=== PATIENT | female | born 1955 | race Caucasian/White ===

== ENCOUNTER → 2017-08-29 18:47 | Outpatient (CLI) | payer MEDICAID ==
[~2017-08-29 18:47] MED LIST: BAYER CHEWABLE81 MG PO; GABAPENTIN100 MG PO; GLUCOPHAGE1000 MG PO; GLUCOTROL 5 MG T5 MG PO; HYDROCHLOROTHIA25 MG PO; LISINOPRIL10 MG PO; MOBIC7.5 MG PO; PEPCID20 MG PO; PLAVIX75 MG PO
[2017-10-01 22:29] VITALS: BMI 36.1
== END | disposition home or self-care (01) ==
LOC: D.MAMMO 14:00
DX: Z12.31 Encounter for screening mammogram for malignant neoplasm of breast (principal)

== ENCOUNTER → 2017-09-25 16:43 | Outpatient (CLI) | payer MEDICAID ==
[~2017-09-25 16:43] MED LIST changes: +CLEOCIN HCL300 MG PO
[2017-10-12 19:09] VITALS: BMI 36.1
== END | disposition home or self-care (01) ==
LOC: D.MAMMO 09:30
DX: R92.8 Other abnormal and inconclusive findings on diagnostic imaging of breast (principal)

== ENCOUNTER 2017-09-26 07:42 | Outpatient (CLI) | payer MEDICAID ==
[~2017-09-26] VITALS: Ht 162.6 cm; Wt 97.7 kg
--- NOTE | ~2017-09-26 | OP ---
PATIENT NAME: JACKELYN SANDOVAL MEDICAL RECORD: [id number] :53 LOCATION:D.CAT ADMISSION DATE: SURGEON: YAMILE JIANG MD DATE OF OPERATION: 09/26/2017 PROCEDURES: 1. PTCA stent LAD. 2. Left heart catheterization. 3. Selective coronary angiography. 4. Left ventriculogram. INDICATION: Angina and coronary artery disease. PROCEDURE IN DETAIL: After informed consent was obtained and after detailed discussion of risks and benefits as well as alternative therapies, the patient elected to proceed with angiogram and angioplasty. The right radial area was prepped and draped in normal sterile fashion. Right radial artery was cannulated via modified Seldinger technique with placement of 6-Azerbaijani sheath. All catheters exchanged through this sheath. FINDINGS: The left ventriculogram was performed in standard 30-degree CAMPBELL view, reveals good cardiac wall motion, ejection fraction 55% to 60%. SELECTIVE CORONARY ANGIOGRAPHY: 1. Left main showed no significant angiographic disease. 2. Left anterior descending has 90% stenosis proximally. 3. The left circumflex has moderate irregularities, but no flow-limiting stenosis. 4. Right coronary has 80% stenosis in the mid vessel. PTCA STENT OF THE LAD: The stent used was a 3.0 x 18 mm Presto. Result was 0% residual stenosis. OVERALL IMPRESSION: Successful PTCA stent of the LAD going from 90% initial stenosis to 0% residual. PLAN: Plan for PTCA stent of the RCA in the near future. TRANSINT:[id number] Voice Confirmation ID: [id number] DOCUMENT ID: [id number] YAMILE JIANG MD at 1403 CC: [id number] DICTATION DATE: 09/26/17 1110 REINFORCING BAR SETTER: 09/26/17 1224 DEP CLI 09/26/17 [place] [id number]
--- NOTE | ~2017-09-26 | HEMODYNAMI ---
PATIENT:JACKELYN SANDOVAL MEDICAL RECORD: [id number] : 53 LOCATION:[facility] ADMISSION DATE: 09/26/17 Generatedon:09/26/201711:13 Patient name: JACKELYN SANDOVAL Patient #: [id number] SSN: : 1955 Date of study: 09/26/2017 Page: Of Hemodynamic Procedure Report Patient Data Patient Demographics Procedure consent was obtained First Name: JACKELYN Gender: Female Last Name: JAIME : 1955 [facility] Initial: K Age: 61 year(s) Patient #: [id number] Race: Unknown Additional ID: [id number] Contact details Address: [address] [place] [address] [address] State: [place] City: [facility] Zip code: [address] Past Medical History Allergies Allergen Reaction Date Comments Reported Other allergy 09/26/2017 ATENOLOL Admission Admission Data Admission Date: 09/26/2017 Admission Time: 7:42 Height (in.): 5.4 BSA: 0.34 (m2) Height (cm.): 13.72 BMI: 5232.03 (kg/m2) Weight (lbs.): 217 Weight (kg.): 98.43 Procedure Procedure Types Cath Procedure Diagnostic Procedure [facility] w/Coronaries PCI Procedure Coronary Stent Coronary Stent Initial Procedure Description Procedure Date Procedure Date: 09/26/2017 Procedure Start Time: 10:58 Procedure End Time: 11:09 Procedure Staff Name Function Abrahan Mondragon MD Performing Physician Claude Yang RT Monitor Katherine Peoples RT Scrub Lane Black RN Nurse Procedure Data Cath Procedure Fluoroscopy Diagnostic fluoroscopy Total fluoroscopy Time: 2.8 time: 2.8 min min Diagnostic fluoroscopy Total fluoroscopy dose: 507 dose: 507 mGy mGy Contrast Material Contrast Material Type Amount (ml) Isovue 300 70 Entry Location Entry Primary Successful Side Size Upsize Upsize Entry Closure Romero ccessful Closure Location (Fr) 1 (Fr) 2 (Fr) Remarks Device Remarks Radial Right 6 Fr Mechanical artery Short Compression Estimated blood loss: 10 ml Diagnostic catheters Device Type Used For End Catheter Placement DIAGNOSTIC [place] 110cm 5 Procedure Fr catheter ([id number]) Procedure Complications No complications Procedure Medications Medication Administration Route Dosage Oxygen etCO2 Nasal cannula 2 l/min Heparin Flush Bag added to field 2 bags (1000units/500ml NS) 0.9% NaCl I.V. 100 ml/hr Radial Cocktail added to field 1 syringe (Verapomil 2mg/Nitro 400mcg/Heparin 1500units) Fentanyl I.V. 50 mcg Versed I.V. 1 mg Radial Cocktail I.A. 1 syringe (Verapomil 2mg/Nitro 400mcg/Heparin 1500units) Fentanyl I.V. 50 mcg Versed I.V. 1 mg Heparin Bolus I.V. 4000 units Integrilin (Bolus I.V. 9 ml 2mg/ml) Integrilin (Bolus wasted 1 ml 2mg/ml) Plavix P.O. 600 mg Hemodynamics Rest BSA: 0.34 (m2) O2 Consumption: Estimated: 31.17 (ml/min) O2 Consumption indexed: Estimated:91.68 (ml/min/m) Heart Rate: 64 (bpm) Snapshots Pre Cath Intra NCS Post Cath Vital Signs Time Heart Resp SPO2 etCO2 NIBP (mmHg) Rhythm Pain Sedation Rate (ipm) (%) (mmHg) Status Level (bpm) 10:45:02 62 16 100 29.1 165/95(132) NSR 0 (11) 10(A) , No pain 10:49:39 64 16 100 29.1 159/97(132) NSR 0 (11) 10(A) , No pain 10:54:13 68 17 100 29.8 157/101(128) NSR 0 (11) 10(A) , No pain 10:58:48 85 16 96 26.9 164/111(146) NSR 0 (11) 9(A) , No pain 11:03:25 93 16 88 32.1 167/104(133) NSR 0 (11) 9(A) , No pain 11:08:03 89 16 92 21.6 153/89(125) NSR 0 (11) 9(A) , No pain 11:08:52 87 16 94 24.6 155/97(115) NSR 0 (11) 10(A) , No pain Medications Time Medication Route Dose Verified Delivered Reason Not es Effectiveness by by 10:55:47 Oxygen etCO2 2 l/min Abrahan Sherman Per physician Nasal Giancarlo Black RN cannula 10:55:58 Heparin Flush added 2 bags Abrahan Sherman used for Bag to Giancarlo Black RN procedure (1000units/500ml field NS) 10:56:08 0.9% NaCl I.V. 100 Abrahan Sherman Per physician ml/hr Giancarlo Black RN 10:56:16 Radial Cocktail added 1 Abrahan Sherman used for (Verapomil to syringe Giancarlo Black RN procedure 2mg/Nitro field 400mcg/Heparin 1500units) 10:56:22 Fentanyl I.V. 50 mcg Abrahan Sherman for sedation Giancarlo Black RN 10:56:29 Versed I.V. 1 mg Abrahan Sherman for sedation Giancarlo Black RN 10:59:13 Radial Cocktail I.A. 1 Abrahan Abrahan for (Verapomil syringe Giancarlo Mondragon MD vasodilation 2mg/Nitro 400mcg/Heparin 1500units) 10:59:20 Fentanyl I.V. 50 mcg Abrahan Sherman for sedation Giancarlo Black RN 10:59:24 Versed I.V. 1 mg Abrahan Sherman for sedation Giancarlo Black RN 11:04:18 Heparin Bolus I.V. 4000 Abrahan Sherman for units Giancarlo Black RN anticoagulation 11:04:31 Integrilin I.V. 9 ml Abrahan Sherman for (Bolus 2mg/ml) Giancarlo Black RN antiplatelet therapy 11:04:37 Integrilin wasted 1 ml Abrahan Sherman for (Bolus 2mg/ml) Giancarlo Black RN antiplatelet therapy 11:08:13 Plavix P.O. 600 mg Abrahan Sherman for Giancarlo Black RN antiplatelet therapy Procedure Log Time Note 10:26:28 Claude THOMAS(R) sent for patient. Start room use. 10:26:29 Time tracking: Regular hours (M-F 7:00 - 5:00) 10:26:32 Plan of Care:Hemodynamics will remain stable., Cardiac rhythm will remain stable., Comfort level will be maintained., Respiratory function will remain adequate., Patient/ family verbilizes understanding of procedure., Procedure tolerated without complication., Recovers from procedure without complications.. 10:26:33 Signed procedure consent form obtained from patient. 10:26:44 H&P Date Dictated: 08/28/2017 Within 30 days and on chart., H&P Addendum completed by physician on day of procedure. (MUST COMPLETE FOR ALL OUTPATIENTS). 10:26:57 Patient allergic to Other allergyATENOLOL 10:27:09 Patient Height : 5.4 inches 10:27:13 Patient Weight : 217 lbs 10:28:22 Patient received from Pre/Post Procedure Room to CCL 1 Alert and oriented. Tansferred to table in Supine position. 10:28:24 Warm blankets applied, and neil hugger turned on for patient comfort. 10:28:25 Correct patient and procedure confirmed by team. 10:28:26 ECG and BP/O2 sat monitors applied to patient. 10:44:14 Vital chart was started 10:44:15 Baseline sample Acquired. 10:44:19 Rhythm: sinus rhythm 10:44:20 Full Disclosure recording started 10:44:21 Pre-procedure instructions explained to patient. 10:44:21 Pre-op teaching completed and patient verbalized understanding. 10:44:22 Family in waiting room. 10:44:24 Patient NPO since Midnight. 10:44:26 Is the patient allergic to Iodine/contrast media? No. 10:44:27 Is patient on blood thinner?No 10:44:29 Patient diabetic? Yes. 10:44:31 If diabetic: On Metformin? Yes 10:44:35 If on Metformin: Last Dose? 09/24/2017 10:44:43 Previous problem with sedation/anesthesia? No ? 10:44:44 Snore? Yes 10:44:45 Sleep apnea? No 10:44:45 Deviated septum? No 10:44:46 Opens mouth fully? Yes 10:44:47 Sticks out tongue? Yes 10:44:48 Airway obstruction? No ? 10:44:50 Dentures? No ? 10:44:52 Modified Cody's test Ulnar < 7 seconds 10:44:54 Patient pain scale 0/10 ?. 10:44:58 IV patent on arrival in left antecubital with 0.9% NaCl at O. 10:45:00 Lab results completed and on chart. 10:45:02 Right Radial & Right Groin area was prepped with chlora-prep and draped in sterile fashion 10:45:03 Alarms reviewed by R. N. 10:45:04 Sharps counted by scrub and verified by R.N. 10:45:07 Use device set Radial Dx or PCI 10:45:07 ACIST Syringe (55270) opened to sterile field. 10:45:08 Medline Cath Pack ([id number]) opened to sterile field. 10:45:08 Bag Decanter (2002S) opened to sterile field. 10:45:10 MBrace Wrist Support ([id number]) opened to sterile field. 10:45:10 Tegaderm 4 x 4 (1626W) opened to sterile field. 10:45:11 ACIST Manifold (77280) opened to sterile field. 10:45:12 ACIST Hand Control (03016) opened to sterile field. 10:45:13 SHEATH 6Fr Prelude Radial ([id number]) opened to sterile field. 10:45:15 DIAGNOSTIC WIRE .035 260cm J wire (933923) opened to sterile field. 10:51:39 Physician arrived 10:51:39 --------ALL STOP TIME OUT------ 10:51:40 Final Timeout: patient, procedure, and site verified with staff and physician. All members of the team are in agreement. 10:51:42 Right Radial & Right Groin site verified by team. 10:51:44 Physical assessment completed. ASA score P 2 - A patient with mild systemic disease as per Abrahan Mondragon MD. 10:51:47 Sedation plan: IV Moderate Sedation Medication:Versed, Fentanyl 10:55:47 Oxygen 2 l/min etCO2 Nasal cannula was administered by Lane Black RN; Per physician; 10:55:58 Heparin Flush Bag (1000units/500ml NS) 2 bags added to field was administered by Lane Black RN; used for procedure; 10:56:08 0.9% NaCl 100 ml/hr I.V. was administered by Lane Black RN; Per physician; 10:56:16 Radial Cocktail (Verapomil 2mg/Nitro 400mcg/Heparin 1500units) 1 syringe added to field was administered by Lane Black RN; used for procedure; 10:56:22 Fentanyl 50 mcg I.V. was administered by Lane Black RN; for sedation; 10:56:29 Versed 1 mg I.V. was administered by Lane Black RN; for sedation; 10:58:02 Procedure started. 10:58:08 Local anesthetic to right radial artery with Lidocaine 2% by Abrahan Mondragon MD.INITIAL ACCESS ONLY 10:58:34 A 6 Fr Short sheath was inserted into the Right Radial artery 10:59:13 Radial Cocktail (Verapomil 2mg/Nitro 400mcg/Heparin 1500units) 1 syringe I.A. was administered by Abrahan Mondragon MD; for vasodilation; 10:59:20 Fentanyl 50 mcg I.V. was administered by Lane Black RN; for sedation; 10:59:24 Versed 1 mg I.V. was administered by Lane Black RN; for sedation; 10:59:26 Zero performed for pressure channel P1 10:59:49 A DIAGNOSTIC [place] 110cm 5 Fr catheter (104770) was advanced over the wire and used for Procedure. 11:00:21 LCA angiography performed. 11:00:23 Injector settings: Ml/sec: 5, Volume: 15, 11:00:28 EF : 60 % 11:00:30 LCA angiography performed. 11:01:12 INFLATOR Merit BasixCompak (LB9177) opened to sterile field. 11:01:13 CHOICE PT Extra Support 182cm wire ([id number]) opened to sterile field. 11:01:18 GUIDE 6FR XBLAD 3.5 catheter ([id number]) opened to sterile field. 11:01:22 RCA angiography performed. 11:02:26 Catheter removed. 11:03:31 6 Fr xblad 3.5 guide catheter was inserted over the wire 11:03:34 choice pt wire advanced. 11:03:45 Wire advanced across lesion. 11:04:18 Heparin Bolus 4000 units I.V. was administered by Lane Black RN; for anticoagulation; 11:04:31 Integrilin (Bolus 2mg/ml) 9 ml I.V. was administered by Lane Black RN; for antiplatelet therapy; 11:04:37 Integrilin (Bolus 2mg/ml) 1 ml wasted was administered by Lane Black RN; for antiplatelet therapy; 11:05:46 Place stent Inflation Number: 1 A SURYA RX 3.0 x 18 stent ([id number]) was prepped and advanced across the Prox LAD. The stent was deployed at 15 DEREK for 0:10 (min:sec). 11:05:48 Stent catheter was removed intact over wire. 11:05:49 Wire removed. 11:05:50 Guide catheter removed. 11:06:17 TR BAND Standard ([id number]) opened to sterile field. 11:06:29 Sheath removed intact; hemostasis achieved with Mechanical Compression to the Right Radial artery. 11:06:30 Procedure ended.(Physican Out) 11:08:07 Fluoroscopy time 02.80 minutes. 11:08:10 Fluoroscopy dose: 507 mGy 11:08: Flurop Dose total: 507 11:08:13 Plavix 600 mg P.O. was administered by Lane Black RN; for antiplatelet therapy; 11:08:13 Contrast amount:Isovue 300 70ml. 11:08:14 Sharps counted by scrub and verified by R.N. 11:08:16 TR band inflated with 12cc of air. 11:08:17 Insertion/operative site no bleeding no hematoma. 11:08:22 Post right radial artery:stable, soft, clean and dry 11:08:23 Post Procedure Pulses reassessed and unchanged 11:08:25 Post-procedure physical assessment completed. ASA score P 2 - A patient with mild systemic disease as per Abrahan Mondragon MD. 11:08:28 Post procedure rhythm: unchanged. 11:08:29 Estimated blood loss: 10 ml 11:08:31 Post procedure instruction explained to patient.Patient verbalizes understanding. 11:08:31 Patient needs reinforcement of post procedure teaching. 11:08:38 Procedure type changed to Cath procedure, Diagnostic procedure, LHC, LHC w/Coronaries, PCI procedure, Coronary Stent, Coronary Stent Initial 11:09:06 Procedure and supply charges have been captured, reviewed, submitted and are correct. 11:09:08 Procedure Complication : No complications 11:09:09 Vital chart was stopped 11:09:14 See physician's report for complete and final results. 11:09:15 Report given to Pre/Post Procedure Room. 11:09:17 Patient transfered to Pre/Post Procedure Room with Stretcher. 11::19 Procedure ended. 11:09:19 Full Disclosure recording stopped 11:09:22 End room use (Document Last) Intervention Summary Intervention Notes Time ActionType Lesion and Equipment Used Action# Pressure Duration Attributes 11:05:46 Place stent Prox LAD SURYA RX 3.0 x 1 15 00:10 18 stent ([id number]) Device Usage Item Name Manufacture Quantity Catalog Number Hospital Part Current Minimal Lot# / Charge Number Stock Stock Serial# Code ACIST Syringe Acist 1 76725 [id number] 424331 [id number] 20 (75255) Medical Systems Inc Medline Cath Cardinal 1 [id number] 602057 80849 800183 5 Pack Health ([id number]) Bag Decanter Microtek 1 2001S 439238 31154 077277 5 (2001S) Medical Inc. MBrace Wrist Advanced 1 140-0250-00 379594 62444 874853 5 Support Vascular ([id number]) Dynamics Tegaderm 4 x 4 3M 1 1626W 141431 456450 474494 5 (1626W) ACIST Manifold Acist 1 13918 580362 164984 796548 5 (49184) Medical Systems Inc ACIST Hand Acist 1 73708 919257 387453 461928 5 Control (69008) Medical Systems Inc SHEATH 6Fr Merit 1 [id number] 855972 273908 776991 5 Prelude Radial Medical ([id number]) DIAGNOSTIC WIRE St Davidson 1 191924 216482 691669 410966 30 .035 260cm J wire (704261) DIAGNOSTIC Terumo 1 40-8153 172736 886585 716160 5 [place] 110cm 5 Fr catheter (000322) INFLATOR Merit Merit 1 RA9046 007131 619959 814216 15 [facility] (DJ9069) CHOICE PT Extra Henderson 1 [id number] 289204 254626 542094 5 Support 182cm Scientific wire ([id number]) GUIDE 6FR XBLAD Cardinal 1 [id number] 437285 508697 950318 10 3.5 catheter Health (98407351) SURYA RX 3.0 x Medtronic 1 [id number] 131700 1969236 602020 5 [id number] 18 stent ([id number]) TR BAND Terumo 1 [id number] 824020 229185 039257 40 Standard ([id number]) Signature Audit [place] Stage Time Signature Unsigned Intra-Procedure 09/26/2017 Claude Yang 11:13:06 AM RT(R) Signatures Monitor : Claude Yang RT Signature : Date : Time : [address] [address]
[2017-09-26 08:06] VITALS: BP 138/80; Ht 162.6 cm; Wt 97.7 kg
[2017-09-26] MEDS ORDERED: MOBIC7.5 MG PO (08:20)
[2017-09-26] MEDS ORDERED: GABAPENTIN100 MG PO (08:20)
[2017-09-26] MEDS ORDERED: GLUCOPHAGE1000 MG PO (08:21)
[2017-09-26] MEDS ORDERED: LISINOPRIL10 MG PO (08:22)
[2017-09-26 08:29] LABS: BASOPHILS 0.5 % (0-2); EOSINOPHILS 2.6 % (0-7); HEMATOCRIT 36.1 % (36.0-48.0); IMMATURE GRANULOCYTES 0.1 % (0-5); LYMPHOCYTES 29.4 % (15-50); MCHC 33.2 g/dL (31.0-37.0); MCV 87.2 fL (80.0-100.0); MEAN PLATELET VOLUME 9.4 fL (7.4-10.4); NEUTROPHILS 55.4 % (40-80); PLATELET COUNT 358 10x3/uL (130-400); RBC 4.14 10x6/uL (4.00-5.40); RDW 13.8 % (11.5-14.5); WBC 8.3 10x3/uL (4.8-10.8)
[2017-09-26 08:45] LABS: ANION GAP 10.6 mmol/L (8-16); CREATININE - SERUM 1.1 mg/dL (0.6-1.3); POTASSIUM - SERUM 3.6 mmol/L (3.5-5.1)
[2017-09-26] MEDS ORDERED: BAYER CHEWABLE81 MG PO (11:28)
[2017-09-26] MEDS ORDERED: PLAVIX75 MG PO (11:28)
== END 2017-09-26 15:25 | disposition home or self-care (01) ==
LOC: D.CATH 07:42
PROVIDERS: Internal Medicine Interventional Cardiology
DX: I25.119 Atherosclerotic heart disease of native coronary artery with unspecified angina pectoris (principal); I10 Essential (primary) hypertension; R94.30 Abnormal result of cardiovascular function study, unspecified; Z01.812 Encounter for preprocedural laboratory examination

== ENCOUNTER 2017-09-30 08:01 | Outpatient (CLI) | payer MEDICAID ==
[~2017-09-30] VITALS: Ht 162.6 cm; Wt 95.5 kg
--- NOTE | ~2017-09-30 | HP ---
PATIENT: JACKELYN SANDOVAL MEDICAL RECORD: [id number] ACCOUNT: [id number] LOCATION:[facility] : 53 ADMISSION DATE: 09/30/17 HISTORY AND PHYSICAL EXAMINATION DATE OF ADMISSION: 09/30/2017 ADMITTING DIAGNOSES: 1. Angina. 2. Coronary artery disease. 3. Recent percutaneous transluminal coronary angioplasty stent of the left anterior descending to with concomitant disease of the right coronary artery. 4. Hypertension. 5. Hyperlipidemia. HISTORY OF PRESENT ILLNESS: Mrs. Linn presented with unstable anginal symptomatology, found to have 2-vessel coronary artery disease of the LAD and RCA, underwent successful PTCA stent of the LAD last week, now presents for PTCA stent of the RCA. PHYSICAL EXAMINATION: GENERAL APPEARANCE: Well-nourished, well-developed, appears stated age. Level of distress, comfortable. PSYCHIATRIC: Mental status, alert, normal affect. Orientation, oriented to time, place and person. EYES: Lids and conjunctiva, noninjected. No discharge, no pallor. ENT: Lips, teeth, gums, normal dentition. Oropharynx, no cyanosis, no pallor. NECK: Carotid arteries, bilateral normal upstroke, no bruits, no thrills. JUGULAR VEINS: No jugular venous pressure or distention. CERVICAL LYMPH NODES: Nontender, nonenlarged. THYROID: Not enlarged. Nontender. No nodules. LUNGS: Respiratory effort, unlabored. CHEST: Normal curvature. No thoracic deformity. No chest wall tenderness. Percussion, resonant. Auscultation, clear. No wheezes, no rales, no rhonchi. CARDIOVASCULAR: Precordial exam, nondisplaced. No heaves or pericardial thrills. Rate and rhythm, regular. Heart sounds, normal S1, normal S2. No S3, no gallop, no rub. Systolic murmur, not heard. Diastolic murmur, not heard. EXTREMITIES: No cyanosis, no edema. Peripheral pulses, full and equal in all extremities, except as noted. No bruits appreciated. ABDOMEN: Soft, nondistended. Normal aorta. No bruit. Nontender. No masses. Liver, nontender, no hepatomegaly. Spleen, nontender, no splenomegaly. MUSCULOSKELETAL: No joint tenderness. No joint swelling. No erythema. NEUROLOGICAL: Normal gait, normal strength, normal tone. SKIN: Warm and dry. REVIEW OF SYSTEMS: The patient reports easy bruising but reports no swollen glands. The patient reports no fever, no night sweats, no significant weight gain, no significant weight loss. No significant exercise tolerance. The patient reports no dry eyes, no irritation, no vision change. Patient reports no difficulty hearing and no ear pain. Patient reports no frequent nose bleeds or nose and sinus problems. Patient reports on arm pain on exertion. No shortness of breath while lying down. No history of heart murmur. Patient reports no cough, no wheezing or coughing up blood. Patient reports no abdominal pain, no vomiting. Normal appetite. No diarrhea and not vomiting blood. No nausea and no constipation. Patient reports no incontinence. No HISTORY AND PHYSICAL [id number] JACKELYN SANDOVAL difficulty urinating. No hematuria. No increased frequency. Patient reports no muscle aches. No weakness, no arthralgias, no back pain. No swelling of the extremities. Patient reports no abnormal mole, no jaundice, no rashes. Reports no loss of consciousness. No weakness and no numbness. No seizures, dizziness, or headaches. The patient reports no depression, no sleep disturbance, feeling safe in a relationship and no alcohol abuse. Patient reports on fatigue. Reports no runny nose or sinus pressure. No itching, no hives, and no frequent sneezing. OVERALL IMPRESSION: Anginal symptomatology with significant disease of the right coronary artery. We will proceed with CARPET RENOVATOR stent of the right coronary artery. TRANSINT:[id number] Voice Confirmation ID: [id number] DOCUMENT ID: [id number] YAMILE JIANG MD at 1403 CC: [id number] DICTATION DATE: 09/30/17 0949 WINDOW SASH INSTALLER: 09/30/17 1039 DEP CLI 09/30/17 [place] [address]
--- NOTE | ~2017-09-30 | OP ---
PATIENT NAME: JACKELYN SANDOVAL MEDICAL RECORD: [id number] :53 LOCATION:D.CAT ADMISSION DATE: SURGEON: YAMILE JIANG MD DATE OF OPERATION: 09/30/2017 PROCEDURES: 1. PTCA stent RCA. 2. Selective coronary angiography. INDICATION: Angina and coronary artery disease. PROCEDURE IN DETAIL: After informed consent was obtained and after a detailed description of the risks, benefits as well as alternative therapies, the patient elected to proceed with angiogram and angioplasty. The right femoral area was prepped and draped in normal sterile fashion. Right femoral artery was cannulated via modified Seldinger technique with placement of 6-Portuguese sheath. All catheters exchanged through this sheath. FINDINGS: The right coronary has 80% to 85% stenosis in the mid vessel. This is addressed with a 3.0 x 15 and 3.0 x 12, both [place] stents. Result was 0% residual stenosis. OVERALL IMPRESSION: Successful percutaneous transluminal coronary angioplasty stent of the right coronary artery going from 80% initial stenosis to 0% residual. TRANSINT:[id number] Voice Confirmation ID: [id number] DOCUMENT ID: [id number] YAMILE JIANG MD at 1403 CC: [id number] DICTATION DATE: 09/30/17 1006 WOODS BOSS: 09/30/17 1121 [facility] CLI 09/30/[address] [address]
--- NOTE | ~2017-09-30 | HEMODYNAMI ---
PATIENT:JACKELYN SANDOVAL MEDICAL RECORD: [id number] : 53 LOCATION:[facility] ADMISSION DATE: 09/30/17 Generatedon:09/30/201710:07 Patient name: JACKELYN SANDOVAL Patient #: [id number] SSN: : 1955 Date of study: 09/30/2017 Page: Of Hemodynamic Procedure Report Patient Data Patient Demographics Procedure consent was obtained First Name: JACKELYN Gender: Female Last Name: JAIME : 1955 [facility] Initial: K Age: 62 year(s) Patient #: [id number] Race: Unknown Additional ID: [id number] Contact details Address: [address] [place] [address] ROAD State: [place] City: [facility] Zip code: [address] Past Medical History Allergies Allergen Reaction Date Comments Reported Other allergy 09/26/2017 ATENOLOL Admission Admission Data Admission Date: 09/30/2017 Admission Time: 8:01 Lab Results Lab Result Date: 09/30/2017 Lab Result Time: 0:00 Biochemistry Name Units Result Min Max BUN mg/dl 12 --(-*--)-- 7 18 Creatinine mg/dl 1 --(--*-)-- 0.6 1.3 CBC Name Units Result Min Max Hemoglobin g/dl 11.4 *-(----)-- 13.5 17.5 Procedure Procedure Types Cath Procedure Diagnostic Procedure Sedation Charges Moderate Sedation up to 15 minutes PCI Procedure Coronary Stent Coronary Stent Initial Procedure Description Procedure Date Procedure Date: 09/30/2017 Procedure Start Time: 9:51 Procedure End Time: 10:04 Procedure Staff Name Function Abrahan Mondragon MD Performing Physician Rebecca Fischer RT Monitor Elvira Mckeon RT Scrub Stone Beck RN Nurse Procedure Data Cath Procedure Fluoroscopy Diagnostic fluoroscopy Total fluoroscopy Time: 4.7 time: 4.7 min min Diagnostic fluoroscopy Total fluoroscopy dose: 578 dose: 578 mGy mGy Contrast Material Contrast Material Type Amount (ml) Isovue 300 74 Entry Location Entry Primary Successful Side Size Upsize Upsize Entry Closure Succes sful Closure Location (Fr) 1 (Fr) 2 (Fr) Remarks Device Remarks Femoral Right 6 Fr Exoseal artery Short Estimated blood loss: 5 ml Procedure Complications No complications Procedure Medications Medication Administration Route Dosage Oxygen NC 2 l/min Lidocaine 2% added to field 20 Heparin Flush Bag added to field 2 bags (1000units/500ml NS) 0.9% NaCl I.V. 100 ml/hr Versed I.V. 1 mg Fentanyl I.V. 50 mcg Versed I.V. 1 mg Fentanyl I.V. 50 mcg Versed I.V. 1 mg Fentanyl I.V. 50 mcg Heparin Bolus I.V. 4000 units Hemodynamics Rest HGB: 11.4 (g/dl) Heart Rate: 74 (bpm) Snapshots Pre Cath Intra NCS Post Cath Vital Signs Time Heart Resp SPO2 etCO2 NIBP (mmHg) Rhythm Pain Sedation Rate (ipm) (%) (mmHg) Status Level (bpm) 9:42:28 72 13 100 35.9 166/109(142) NSR 0 (11) 10(A) , No pain 9:46:50 67 15 95 23.1 147/88(136) NSR 0 (11) 10(A) , No pain 9:51:11 71 16 95 29.8 127/82(107) NSR 0 (11) 9(A) , No pain 9:55:31 67 15 94 35.1 112/66(94) NSR 0 (11) 9(A) , No pain 9:59:42 69 16 96 33.6 119/71(114) NSR 0 (11) 9(A) , No pain 10:03:57 67 15 99 35.1 117/75(108) NSR 0 (11) 10(A) , No pain Medications Time Medication Route Dose Verified Delivered Reason Notes Effectiveness by by 9:41:55 Oxygen NC 2 Abrahan Ritter used for l/min Giancarlo Beck RN procedure 9:42:02 Lidocaine 2% added 20ml Abrahan Gauthier for local to vial Giancarlo Mondragon MD anesthetic field 9:42:08 Heparin Flush added 2 Abrahan Gauthier used for Bag to bags Giancarlo Mondragon MD procedure (1000units/500ml field NS) 9:42:17 0.9% NaCl I.V. 100 Abrahan Ritter Per physician ml/hr Giancarlo Beck RN 9:43:21 Versed I.V. 1 mg Abrahan Avendanoie for sedation Giancarlo Beck RN 9:43:27 Fentanyl I.V. 50 Abrahan Buffie for sedation mcg Giancarlo Beck RN 9:49:24 Versed I.V. 1 mg Abrahan Buffie for sedation Giancarlo Beck RN 9:49:27 Fentanyl I.V. 50 Abrahan Buffie for sedation mcg Giancarlo Beck RN 9:55:44 Versed I.V. 1 mg Abrahan Avendanoie for sedation Giancarlo Beck RN 9:55:47 Fentanyl I.V. 50 Abrahan Avendanoie for sedation mcg Giancarlo Beck RN 9:56:38 Heparin Bolus I.V. 4000 Abrahan Avendanoie for verifie d units Giancarlo Beck RN anticoagulation with dr mondragon Procedure Log Time Note 9:19:29 Diagnostic Cath Status : Elective 9:19:44 Elvira Mckeon RT(R) sent for patient. Start room use. 9:19:45 Time tracking: Regular hours (M-F 7:00 - 5:00) 9:19:50 Plan of Care:Hemodynamics will remain stable., Cardiac rhythm will remain stable., Comfort level will be maintained., Respiratory function will remain adequate., Patient/ family verbilizes understanding of procedure., Procedure tolerated without complication., Recovers from procedure without complications.. 9:30:32 Patient received from Pre/Post Procedure Room to [facility] Alert and oriented. Tansferred to table in Supine position. 9:30:33 Warm blankets applied, and neil hugger turned on for patient comfort. 9:30:34 Correct patient and procedure confirmed by team. 9:30:50 Signed procedure consent form obtained from patient. 9:40:59 ECG and BP/O2 sat monitors applied to patient. 9:41:00 Baseline sample Acquired. 9:41:00 Vital chart was started 9:41:04 Rhythm: sinus rhythm 9:41:06 Full Disclosure recording started 9:41:10 H&P Date Dictated: 09/30/2017 Within 30 days and on chart., H&P Addendum completed by physician on day of procedure. (MUST COMPLETE FOR ALL OUTPATIENTS). 9:41:12 Pre-procedure instructions explained to patient. 9:41:12 Pre-op teaching completed and patient verbalized understanding. 9:41:14 Family in patients room. 9:41:16 Patient NPO since Midnight. 9:41:18 Is the patient allergic to Iodine/contrast media? No. 9:41:24 Was the patient premedicated? No 9:41:25 Is patient on blood thinner?Yes 9:41:28 ACC The patient was administered the following blood thiners within the last 24 hours: ACCPlavix 9:41:29 Patient diabetic? Yes. 9:41:30 If diabetic: On Metformin? No 9:41:32 Previous problem with sedation/anesthesia? No ? 9:41:34 Snore? Yes 9:41:35 Sleep apnea? No 9:41:36 Deviated septum? No 9:41:37 Opens mouth fully? Yes 9:41:37 Sticks out tongue? Yes 9:41:39 Airway obstruction? No ? 9:41:42 Dentures? No ? 9:41:55 Oxygen 2 l/min NC was administered by Stone Beck RN; used for procedure; 9:42:02 Lidocaine 2% 20ml vial added to field was administered by Abrahan Mondragon MD; for local anesthetic; 9:42:08 Heparin Flush Bag (1000units/500ml NS) 2 bags added to field was administered by Abrahan Mondragon MD; used for procedure; 9:42:17 0.9% NaCl 100 ml/hr I.V. was administered by Stone Beck RN; Per physician; 9:42:22 Pre procedure: right dorsailis pedis pulse 1+ Palpable, but thready & weak; easily obliterated 9:42:24 Pre procedure: left dorsailis pedis pulse 1+ Palpable, but thready & weak; easily obliterated 9:42:26 Patient pain scale 0/10 ?. 9:42:32 IV patent on arrival in left forearm with 0.9% NaCl at [facility]. 9:42:34 Lab results completed and on chart. 9:42:37 Right groin area was prepped with chlora-prep and draped in sterile fashion 9:42:38 Alarms reviewed by R. N. 9:42:39 Sharps counted by scrub and verified by R.N. 9:42:40 Physician arrived 9:42:40 --------ALL STOP TIME OUT------ 9:42:41 Final Timeout: patient, procedure, and site verified with staff and physician. All members of the team are in agreement. 9:42:52 Right groin site verified by team. 9:42:55 Physical assessment completed. ASA score P 2 - A patient with mild systemic disease as per Abrahan Mondragon MD. 9:42:58 Sedation plan: IV Moderate Sedation Medication:Versed, Fentanyl 9:43:05 Use device set Radial Dx or PCI 9:43:06 ACIST Syringe (23686) opened to sterile field. 9:43:06 Medline Cath Pack ([id number]) opened to sterile field. 9:43:07 Bag Decanter (2002S) opened to sterile field. 9:43:07 DIAGNOSTIC WIRE .035 260cm J wire (189166) opened to sterile field. 9:43:08 ACIST Hand Control (61281) opened to sterile field. 9:43:09 ACIST Manifold (58288) opened to sterile field. 9:43:09 Tegaderm 4 x 4 (1626W) opened to sterile field. 9:43:10 MBrace Wrist Support ([id number]) opened to sterile field. 9:43:21 Versed 1 mg I.V. was administered by Stone Beck RN; for sedation; 9:43:26 INFLATOR Merit BasixCompak (KU8983) opened to sterile field. 9:43:27 Fentanyl 50 mcg I.V. was administered by Stone Beck RN; for sedation; 9:43:27 SHEATH 6Fr Prelude ([id number]) opened to sterile field. 9:49:24 Versed 1 mg I.V. was administered by Stone Beck RN; for sedation; 9:49:27 Fentanyl 50 mcg I.V. was administered by Stone Beck RN; for sedation; 9:50:15 Lab Result : Hemoglobin 11.4 g/dl 9:50:15 Lab Result : Creatinine 1 mg/dl 9:50:15 Lab Result : BUN 12 mg/dl 9:51:38 Zero performed for pressure channel P1 9:51:46 Procedure started. 9:51:52 Local anesthetic to right femoral artery with Lidocaine 2% by Abrahan Mondragon MD.INITIAL ACCESS ONLY 9:52:13 A 6 Fr Short sheath was inserted into the Right Femoral artery 9:52:41 GUIDE 6FR AR 2.0 catheter ([id number]) opened to sterile field. 9:52:51 6 Fr ar 2 guide catheter was inserted over the wire 9:54:56 Guide Catheter removed. unable to cannulate vessel. 9:55:12 GUIDE 6FR AL 2.0 catheter ([id number]) opened to sterile field. 9:55:44 Versed 1 mg I.V. was administered by Stone Beck RN; for sedation; 9:55:47 Fentanyl 50 mcg I.V. was administered by Stone Beck RN; for sedation; 9:56:12 CHOICE PT Extra Support 182cm wire ([id number]) opened to sterile field. 9:56:38 Heparin Bolus 4000 units I.V. was administered by Stone Beck RN; for anticoagulation; verified with dr mondragon 9:57:53 choice pt wire advanced. 9:57:55 Wire advanced across lesion. 9:59:20 Place stent Inflation Number: 1 A SURYA RX 3.0 x 18 stent ([id number]) was prepped and advanced across the Mid RCA. The stent was deployed at 13 DEREK for 0:10 (min:sec). 10:00:04 Stent catheter was removed intact over wire. 10:01:14 Place stent Inflation Number: 2 A SURYA RX 3.0 x 12 stent ([id number]) was prepped and advanced across the Mid RCA. The stent was deployed at 11 DEREK for 0:10 (min:sec). 10:01:50 Stent catheter was removed intact over wire. 10:01:51 Wire removed. 10:01:51 Guide catheter removed. 10:02:05 EXOSEAL 6Fr (EX600) opened to sterile field. 10:02:16 Sheath removed intact; hemostasis achieved with Exoseal to the Right Femoral artery. 10:02:18 Procedure ended.(Physican Out) 10:03:08 Fluoroscopy time 04.70 minutes. 10:03:12 Fluoroscopy dose: 578 mGy 10:03:12 Flurop Dose total: 578 10:03:15 Contrast amount:Isovue 300 74ml. 10:03:17 Sharps counted by scrub and verified by R.N. 10:03:18 Insertion/operative site no bleeding no hematoma. 10:03:20 Post-op/insertion site Right Femoral artery dressed using a 4 x 4 and Tegaderm. 10:03:23 Post right femoral artery:stable 10:03:24 Post Procedure Pulses reassessed and unchanged 10:03:27 Post procedure rhythm: unchanged. 10:03:29 Estimated blood loss: 5 ml 10:03:31 Post procedure instruction explained to patient.Patient verbalizes understanding. 10:03:32 Patient needs reinforcement of post procedure teaching. 10:03:51 Procedure type changed to Cath procedure, Diagnostic procedure, Sedation Charges, Moderate Sedation up to 15 minutes, PCI procedure, Coronary Stent, Coronary Stent Initial 10:03:52 Procedure and supply charges have been captured, reviewed, submitted and are correct. 10:04:00 Procedure Complication : No complications 10:04:03 Vital chart was stopped 10:04:03 See physician's report for complete and final results. 10:04:07 Report given to Pre/Post Procedure Room. 10:04:09 Patient transfered to Pre/Post Procedure Room with Stretcher. 10:04:12 Procedure ended. 10:04:12 Full Disclosure recording stopped 10:04:37 ACC-PCI Only Patient was given prescriptions, or instructed by Abrahan Mondragon MD to start/continue the following medications upon discharge: Plavix 10:04:38 End room use (Document Last) Intervention Summary Intervention Notes Time ActionType Lesion and Equipment Used Action# Pressure Duration Attributes 9:59:20 Place stent Mid RCA SURYA RX 3.0 x 1 13 00:10 18 stent ([id number]) 10:01:14 Place stent Mid RCA SURYA RX 3.0 x 2 11 00:10 12 stent ([id number]) Device Usage Item Name Manufacture Quantity Catalog Number Hospital Part Current M inimal Lot# / Charge Number Stock Stock Serial# Code ACIST Syringe Acist 1 65712 565243 093705 683138 2 0 (06816) Medical Systems Inc Medline Cath Cardinal 1 [id number] 692216 72503 961740 5 Pack Health ([id number]) Bag Decanter Microtek 1 489478 66833 710959 5 () Medical Inc. DIAGNOSTIC [facility] [place] 1 846515 376485 769913 677947 3 0 WIRE .035 260cm J wire (307243) ACIST Hand Acist 1 83299 837213 554085 187707 5 Control Medical (26672) Systems Inc ACIST Manifold Acist 1 61911 060941 816948 196581 5 (10822) Medical Systems Inc Tegaderm 4 x 4 3M 1 1626W 172673 908704 654327 5 (1626W) MBrace Wrist Advanced 1 140-0250-00 943377 04876 377359 5 Support Vascular ([id number]) Dynamics INFLATOR Merit Merit 1 BO8481 539320 372287 092322 1 5 [employer] (CH6591) SHEATH 6Fr Merit 1 [id number] 553515 009888 660952 5 Prelude Medical ([id number]) GUIDE 6FR AR Medtronic 1 [id number] 990751 25835 949215 1 2.0 catheter ([id number]) GUIDE 6FR AL Medtronic 1 [id number] 322325 67290 618263 1 2.0 catheter ([id number]) CHOICE PT Carpenter 1 [id number] 092261 824863 909310 5 Extra Support Scientific 182cm wire ([id number]) SURYA RX 3.0 x Medtronic 1 [id number] 970739 8197408 063817 5 [id number] 18 stent ([id number]) SURYA RX 3.0 x Medtronic 1 [id number] 506483 1204738 009163 5 [id number] 12 stent ([id number]) EXOSEAL 6Fr Cardinal 1 EX600 571664 936237 177950 1 0 (EX600) Health Signature Audit [place] Stage Time Signature Unsigned Intra-Procedure 09/30/2017 Rebecca Fischer 10:07:02 AM RT(R) Signatures Monitor : Rebecca Fischer RT Signature : Date : Time : [facility] [address] [facility] [address]
[~2017-09-30 08:01] MED LIST changes: -CLEOCIN HCL300 MG PO; -GLUCOTROL 5 MG T5 MG PO; -HYDROCHLOROTHIA25 MG PO; -PEPCID20 MG PO
[2017-09-30] MEDS ORDERED: GLUCOTROL 5 MG T5 MG PO (08:53)
[2017-09-30 08:59] VITALS: BP 141/88; Ht 162.6 cm; Wt 95.5 kg
[2017-09-30 09:08] LABS: BASOPHILS 0.6 % (0-2); EOSINOPHILS 3.1 % (0-7); HEMATOCRIT 35.1 % (36.0-48.0); HEMOGLOBIN 11.4 g/dL (12-16); IMMATURE GRANULOCYTES 0.1 % (0-5); LYMPHOCYTES 28.6 % (15-50); MCH 28.6 pg (26.0-34.0); MCHC 32.5 g/dL (31.0-37.0); MONOCYTES 12.5 % (2-11); NEUTROPHILS 55.1 % (40-80); PLATELET COUNT 339 10x3/uL (130-400); RBC 3.99 10x6/uL (4.00-5.40); RDW 14.2 % (11.5-14.5); WBC 7.8 10x3/uL (4.8-10.8)
[2017-09-30 09:18] LABS: CARBON DIOXIDE 28.8 mmol/L (21.0-32.0); POTASSIUM - SERUM 4.8 mmol/L (3.5-5.1)
[2017-10-01] MEDS ORDERED: PEPCID20 MG PO (22:32)
[2017-10-01] MEDS ORDERED: HYDROCHLOROTHIA25 MG PO (22:33)
== END 2017-09-30 14:00 ==
LOC: D.CATH 08:01
PROVIDERS: Internal Medicine Interventional Cardiology
DX: I25.119 Atherosclerotic heart disease of native coronary artery with unspecified angina pectoris (principal); I10 Essential (primary) hypertension; E78.5 Hyperlipidemia, unspecified; Z95.5 Presence of coronary angioplasty implant and graft; Z01.812 Encounter for preprocedural laboratory examination

== ENCOUNTER 2017-10-01 22:06 | Emergency (ER) | payer MEDICAID ==
[~2017-10-01] VITALS: Ht 162.6 cm; Wt 95.5 kg
[~2017-10-01 22:06] MED LIST changes: +GLUCOTROL 5 MG T5 MG PO
[2017-10-01 22:29] VITALS: Ht 162.6 cm; Wt 95.5 kg
[2017-10-01] MEDS ORDERED: PEPCID20 MG PO (22:32)
[2017-10-01] MEDS ORDERED: HYDROCHLOROTHIA25 MG PO (22:33)
[2017-10-02 01:55] VITALS: BP 144/70
== END 2017-10-02 01:56 | disposition home or self-care (01) ==
LOC: D.ER 22:06
DX: M25.531 Pain in right wrist (principal); R10.9 Unspecified abdominal pain; R06.02 Shortness of breath; I10 Essential (primary) hypertension; E11.9 Type 2 diabetes mellitus without complications

== ENCOUNTER 2017-10-12 18:47 | Emergency (ER) | payer MEDICAID ==
[~2017-10-12] VITALS: Ht 162.6 cm; Wt 95.5 kg
[~2017-10-12 18:47] MED LIST changes: +HYDROCHLOROTHIA25 MG PO; +PEPCID20 MG PO
[2017-10-12 19:09] VITALS: BP 113/60; Ht 162.6 cm; Wt 95.5 kg
[2017-10-12] MEDS ORDERED: CLEOCIN HCL300 MG PO (19:26)
== END 2017-10-12 19:34 | disposition home or self-care (01) ==
LOC: D.ER 18:47
DX: L08.9 Local infection of the skin and subcutaneous tissue, unspecified (principal)

== ENCOUNTER → 2018-09-08 16:49 | Outpatient (CLI) | payer MEDICAID ==
[2017-10-12 19:09] VITALS: BMI 36.1
[~2018-09-08 16:49] MED LIST changes: +CLEOCIN HCL300 MG PO
== END | disposition home or self-care (01) ==
LOC: D.MAMMO 15:45
PROVIDERS: ATTEND Family Medicine
DX: Z12.31 Encounter for screening mammogram for malignant neoplasm of breast (principal)